=== PATIENT | female | born 1985 | race African-American/Black ===

== ENCOUNTER → 2018-04-10 02:11 | Emergency (ER) | payer SELFPAY ==
[~2018-04-10 02:11] MED LIST: Bacitracin OINTMENT* 0.5% 0.5 oz TUBE TOPICAL ONE; HYDROcodone/ACETAMIN 5-325 MG* 1 TAB PO ONE; Iohexol 300* (CONTRAST) 10 ML SDV IV ONE; Morphine INJ* 2 MG/ML 1 ML SYRINGE (TWO MG - NEW SYRINGE VERSION) IV ONE; Morphine INJ* 2 MG/ML 1 ML SYRINGE (TWO MG - NEW SYRINGE VERSION) ONE; Morphine INJ** 4 MG/ML 1 ML CARPUJECT IV ONE; Tetan/Diph/Pertus SYR(Tdap)* 0.5 ML SYR(BOOSTRIX) use SYR IM ONE; ceFAZolin 1 GM ADVAN(*) 1 GM ADDV.VIAL IVPB ONE; ceFAZolin 1 GM ADVAN(*) 1 GM in NS 0.9% 50 ML* 50 ML IVPB ONE; ceFAZolin 1 GM in Dextrose (*) 1 GM/50 ML BAG IVPB ONE
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
[2018-04-10 03:16] LABS: INR 0.93 (0.77-1.02)
[2018-04-10 03:18] LABS: ABS Basophils 0 10^3/ul (0-0.2); ABS Eosinophils 0 10^3/ul (0-0.6); ABS Lymphocytes 1.1 10^3/ul (1.0-4.8); ABS Monocytes 0.3 10^3/ul (0-0.8); ABS Neutrophils 4.9 10^3/ul (1.5-7.7); ABS Nucleated RBC 0 10^3/ul; Eosinophil % 0.3 % (0-6); Hematocrit 43 % (35-47); Hemoglobin 14.4 g/dl (12.0-16.0); Lymphocyte % 17.5 % (25-47); Mean Corpuscular HGB Conc 34 g/dl (31-36); Mean Corpuscular Hemoglobin 29 pg (27-31); Mean Corpuscular Volume 87 fL (80-97); Mean Platelet Volume 8.7 um3 (7.4-10.4); Nucleated Red Blood Cells % 0.1; Platelet Count 283 10^3/ul (150-450); Red Blood Count 4.94 10^6/ul (4.00-5.40); Red Cell Distribution Width 14 % (10.5-15); White Blood Count 6.3 10^3/ul (3.5-10.8)
[2018-04-10 03:21] LABS: EGFR Non-African American 52.7 (>60)
[2018-04-10 03:40] LABS: Urine Appearance Clear; Urine Blood 1+ (Negative); Urine Color Straw; Urine Ketones Negative (Negative); Urine Protein Negative (Negative); Urine Red Blood Cell Trace(0-2/hpf) (Absent); Urine Specific Gravity 1.003 (1.010-1.030); Urine Urobilinogen Negative (Negative); Urine White Blood Cell Absent (Absent)
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
[2018-04-10 06:32] VITALS: BP 128/99
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
== END | disposition home or self-care (01) ==
LOC: ED 02:11
DX: S01.01XA Laceration without foreign body of scalp, initial encounter (principal); S42.001A Fracture of unspecified part of right clavicle, initial encounter for closed fracture; T14.8XXA Other injury of unspecified body region, initial encounter; F10.129 Alcohol abuse with intoxication, unspecified; V87.8XXA Person injured in other specified noncollision transport accidents involving motor vehicle (traffic), initial encounter; Y92.411 Interstate highway as the place of occurrence of the external cause
CPT/HCPCS: 12001; 36415; 70450; 71045; 71260; 72125; 72170; 74177; 80053; 80307; 80320; 81003; 81015; 85025; 85610; 85730; 90471; 90715; 96361; 96374; 96375; 99284; A9270-GY; G0480; J0690; J2270; Q9967